=== PATIENT | male | born 1985 | race Caucasian/White ===

== ENCOUNTER 2017-03-27 16:03 | Emergency (ER) | payer MEDICAID, OTHER ==
[~2017-03-27] VITALS: Wt 89.0 kg
[~2017-03-27 16:03] MED LIST: IBUP-1542 PO
[2017-03-27] MEDS ORDERED: LIDOCAINE 1% (MDV) 10 ML INJ INJ STA (16:13)
[2017-03-27] MEDS ORDERED: DIPHTH/TET/ACEL PERTUSS (ADULT) 0.5 ML VIAL IM ONE (16:30)
--- NOTE | 2017-03-27 16:39 | ERD ---
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 Patient states that he was cutting Tylenol 4 inch piece fell onto his wrists. There is mild pain that is localized , no active bleeding. He has no difficulty moving the thumb or making a fist. He does not recall his last tetanus shot. ROS All systems reviewed and are negative except as per history of present illness. Medications Home Meds Active Scripts Ibuprofen* (Motrin*) 600 Mg Tab, 600 MG PO Q6H Y for PAIN AND OR ELEVATED TEMP, #30 TAB Prov:MORGAN PERES PA-C 01/23/16 PMhx/Soc Medical and Surgical Hx: pt denies Medical Hx, pt denies Surgical Hx Hx Alcohol Use: No Hx Substance Use: No Hx Tobacco Use: No Smoking Status: Never smoker Physical Exam Vitals Vital Signs Date Time Temp Pulse Resp B/P Pulse Ox O2 Delivery O2 Flow Rate FiO2 03/27/17 16:05 98.0 65 98 Physical Exam General: Well-developed, well-nourished. The patient appears in no acute distress. HEENT: Head is normocephalic, atraumatic. No scleral icterus. Neck: Supple. Nontender. Lungs: Clear to auscultation. Normal air movement. Heart: Regular rate and rhythm. S1 and S2 are normal. No murmurs, gallops, or rubs. Abdomen: Nondistended. Extremities: Right radial wrist has a 3 cm transverse laceration, there is mild amount of subcutaneous tissue visible, no tendon visible, no with no foreign bodies, no active bleeding. No bony deformities, patient is able to make a thumbs up and okay sign. Neurologic: Alert and oriented 3. No focal deficits. Normal speech and gait. Skin: Normal turgor. No rash or lesions. Results 24 hrs Current Medications Medications (Trade) Dose Ordered Sig/Chapo Route PRN Reason Start Time Stop Time Status Last Admin Dose Admin Diphtheria/ Tetanus/Acell Pertussis (Adacel) 0.5 ml ONCE ONCE IM 03/27/17 16:30 03/27/17 16:31 Lidocaine HCl (Lidocaine 1% (Mdv) 10 ml) 10 ml ONCE STAT INJ 03/27/17 16:13 03/27/17 16:14 DC Procedures/MDM Laceration Repair by me: Patient was verbally consented Anesthesia: 1% lidocaine locally, 2 cc Location: Right wrist Tendon/Joint/Nerves: No injury Foreign body: None detected after copious irrigation and exploration Technique: Simple Interrupted Sutures 3 using 4-0 Ethilon Complexity: No subcutaneous sutures/mucosal repair/ edge excision Post Closure Length: 3 cm Patient's bleeding was easily controlled in the department and there is no indication of anemia. No evidence of compartment syndrome, neurologic injury, vascular injury, open joint, tendon laceration, or foreign body. Patient is appropriate for outpatient follow up. 48 hour wound check. Scar minimization instructions given. MDM: 31 male comes in with a superficial laceration of the right radial wrist from a child falling onto it this afternoon at work. Laceration superficial, no active bleeding, doubt underlying fracture, retained foreign bodies. Wound was irrigated, and closed with sutures and he is to follow-up in 2 days for wound check and suture removal in 7 days per Departure Diagnosis: Primary Impression: Laceration Condition: Good Patient Instructions: Laceration, All Additional Instructions: Wound check in 2 days. Suture removal in 7 days. ROSAS CUEVAS PA-C Mar 27, 2017 16:39
== END 2017-03-27 17:17 | disposition home or self-care (01) ==
LOC: FTE 16:03
DX: S61.511A Laceration without foreign body of right wrist, initial encounter (principal); W20.8XXA Other cause of strike by thrown, projected or falling object, initial encounter; Y92.89 Other specified places as the place of occurrence of the external cause; Z23 Encounter for immunization
CPT/HCPCS: 12002; 90715; Z7610; 90471

== ENCOUNTER 2017-08-26 15:15 | Emergency (ER) | payer MEDICAID ==
[~2017-08-26] VITALS: Ht 165.1 cm; Wt 90.0 kg
[2017-08-26 15:22] VITALS: Ht 165.1 cm; Wt 90.0 kg
[2017-08-26] MEDS ORDERED: METOCLOPRAMIDE 10 MG INJ IV STA (16:57)
[2017-08-26] MEDS ORDERED: KETOROLAC 30 MG INJ IV STA (16:57)
[2017-08-26] MEDS ORDERED: DIPHENHYDRAMINE 50 MG INJ IV STA (16:57)
[2017-08-26] MEDS ORDERED: SOD CHLORIDE 0.9% 1,000 ML IV STA (16:57)
--- NOTE | 2017-08-26 17:08 | ERD ---
ER Documentation Chief Complaint Chief Complaint TORRES X 1 WEEK HPI This is a 31-year-old previously healthy male who is presenting with 3 days of a mild to moderate aching and throbbing bilateral frontal headache, myalgias, intermittent fever and chills, nausea with 3-4 episodes of nonbilious nonbloody vomiting per day. The patient has been trying to take aspirin and Tylenol for his discomfort, but it has not been working. The patient does not endorse any vision changes. He has had no photophobia or phonophobia. He has not had any focal deficits. He has had no weakness or numbness or tingling to the face or extremities. He does not have a family history of headaches or sudden or aneurysm. The patient has not had any neck stiffness or pain. He has had no episodes of diaphoresis. The patient does not endorse neck or back pain. The patient denies lightheadedness or dizziness. The patient has had no chest pain or shortness of breath or trouble breathing. The patient does report some general abdominal discomfort but denies changes to bowel movements or urination. The patient has had no focal deficits. The patient has had no weakness or numbness or tingling to the face or extremities. ROS All systems reviewed and are negative except as per history of present illness. Medications Home Meds Active Scripts Ibuprofen* (Motrin*) 600 Mg Tab, 600 MG PO Q6H Y for PAIN AND OR ELEVATED TEMP, #30 TAB Prov:MORGAN PERES PA-C 01/23/16 Allergies Allergies: Coded Allergies: No Known Allergy (Unverified , 08/26/17) PMhx/Soc Medical and Surgical Hx: pt denies Medical Hx, pt denies Surgical Hx History of Surgery: No Hx Neurological Disorder: No Hx Respiratory Disorders: No Hx Cardiac Disorders: No Hx Psychiatric Problems: No Hx Miscellaneous Medical Probl: No Hx Alcohol Use: No Hx Substance Use: No Hx Tobacco Use: No Smoking Status: Never smoker FmHx Family History: No coronary disease, No diabetes Physical Exam Vitals Vital Signs Date Time Temp Pulse Resp B/P Pulse Ox O2 Delivery O2 Flow Rate FiO2 08/26/17 17:25 85 15 129/97 98 Room Air 08/26/17 15:22 98.1 88 18 133/88 99 Physical Exam Const: No apparent distress, well-developed, well-nourished Head: Normocephalic, Atraumatic Eyes: Normal Conjunctiva. Extraocular movements intact. Pupils equal, round and reactive to light ENT: Normal External Ears, Nose and Mouth. Moist Mucous Membranes. Neck: Full range of motion. No meningismus. Resp: Clear to auscultation bilaterally, No wheezes, rales or rhonchi Cardio: Regular rate and rhythm. No murmurs, rubs or gallops Abd: Soft, non tender, non distended. Normal bowel sounds Skin: No petechiae or rashes Back: No midline tenderness. No CVA tenderness Ext: No cyanosis, or edema Neur: Awake and alert, oriented 4. Cranial nerves intact. No facial droop. Normal strength, sensation and coordination. Psych: Normal Mood and Affect Results 24 hrs Current Medications Medications (Trade) Dose Ordered Sig/Chapo Route PRN Reason Start Time Stop Time Status Last Admin Dose Admin Sodium Chloride (NS) 1,000 ml @ 1,000 mls/hr Q1H STAT IV 08/26/17 16:57 08/26/17 17:56 DC 08/26/17 17:15 Metoclopramide HCl (Reglan) 10 mg ONCE STAT IV 08/26/17 16:57 08/26/17 17:00 DC 08/26/17 17:15 Ketorolac Tromethamine (Toradol) 15 mg ONCE STAT IV 08/26/17 16:57 08/26/17 17:00 DC 08/26/17 17:15 Diphenhydramine HCl (Benadryl) 25 mg ONCE STAT IV 08/26/17 16:57 08/26/17 17:00 DC 08/26/17 17:18 Procedures/MDM MDM The patient's presentation warrants further investigation. The patient is presenting with a headache. The patient does endorse flulike symptoms as well. His symptoms could be related to the flu and this will be tested. The patient 's vital signs are normal. He has moist mucous membranes and does not appear clinically dehydrated. The patient will be given a liter of fluids in addition to Toradol, Reglan and Benadryl for his headache. This should also help with his nausea. I do not feel that blood work at this time is required given his overall where well appearing clinical exam. The patient does not have any neurologic deficits at this time. I have low suspicion for intracranial pathology. He does not have a sternal or family history of aneurysm or sudden . The patient's headache was not severe on onset. It has been gradual in nature. I have low suspicion for subarachnoid hemorrhage. I have low suspicion for meningitis. LABS The patient's influenza testing was negative TREATMENT/DISPOSITION The patient was treated as described above with resolution of his symptoms. The patient's symptoms could be consistent with a migraine. The patient does have symptoms that could also be consistent with a viral illness. Patient's influenza testing today was negative, but a viral illness is still a possibility. At this time, I feel that the patient stable for discharge. The patient will need follow-up with his primary care physician in 2-3 days. The patient will be given strict precautions with which to return to the emergency department. The patient's blood pressure was elevated at greater than 120/80 while in the emergency department. The patient was otherwise stable with no evidence of hypertensive urgency or emergency or end organ damage. The patient does not require admission for blood pressure control. I have discussed with the patient the risks of hypertension. I have advised the patient to follow up with the primary care physician for outpatient monitoring and treatment for hypertension in 2-3 days. I have instructed the patient to return to the ER for any new or worsening symptoms including chest pain, shortness of breath, headache, blurred vision, confusion, nausea, vomiting or LOC. Disclaimer: Inadvertent spelling and grammatical errors are likely due to EHR/ dictation software use and do not reflect on the overall quality of patient care. Note that the electronic time recorded on this note does not necessarily reflect the actual time of the patient encounter. Departure Diagnosis: Primary Impression: Headache Headache type: unspecified Headache chronicity pattern: acute headache Intractability: not intractable Qualified Code: R51 - Acute nonintractable headache, unspecified headache type Additional Impression: Viral syndrome Condition: Stable LOBO FLORENTINO MD Aug 26, 2017 17:08
[2017-08-26 20:15] VITALS: BP 126/78; PULSE 100; RESP 18; TEMP 98.6
[2017-08-26] MEDS ORDERED: KETOROLAC 15 MG INJ IV STA (20:27)
[2017-08-26] MEDS ORDERED: ACETAMINOPHEN 325 MG TAB PO ONE (20:30)
== END 2017-08-26 20:39 | disposition home or self-care (01) ==
LOC: FTE 15:15
DX: B34.9 Viral infection, unspecified (principal)
CPT/HCPCS: 87400; 96374; 96375; 96376; J1200; J1885; J2765; J7030; Z7502; Z7610